=== PATIENT | female | born 1955 | race Native Hawaiian/Other Pacific Islander ===

== ENCOUNTER 2016-07-29 12:08 | Emergency (ER) | payer SELFPAY ==
[2016-07-29 15:26] VITALS: BP 120/60
--- NOTE | 2016-07-29 17:10 | Emergency Department Report ---
Chief Complaint: Fall Stated Complaint: FALL/LT HAND/SIDE PAIN Time Seen by Provider: 07/29/16 16:05 - HPI History of Present Illness: 60-year-old female presents today with headache, left shoulder, left leg and left breast pain post-fall that occurred 2 months ago. Denies head injury or loss of consciousness. Patient states that her pain is a 10 out of 10 and she would like some pain medication. Her activity pattern, Tylenol, ibuprofen with temporary relief. Denies numbness, weakness, paresthesias. Denies fever, chills, vomiting, chest pain, shortness of breath, abdominal pain, bowel or bladder incontinence, urinary symptoms. Positive for history of migraines. - ROS Review of Systems: Per HPI - Exam Vital Signs: Vital Signs 07/29/16 07/29/16 12:11 15:25 Temperature 98.0 F 98.5 F Pulse Rate 64 70 Respiratory 18 16 Rate Blood Pressure 118/66 Blood Pressure 120/60 [Right] O2 Sat by Pulse 96 100 Oximetry Physical Exam: GENERAL: The patient is well-developed and well-nourished. Patient is in NAD. HEAD: Normocephalic. Atraumatic. EYES: Extraocular motions are intact, PERRL. NOSE: Normal nasal mucosa with no nasal discharge. THROAT: No erythema, swelling or exudates. NECK: Supple, nontender, without lymphadenopathy. CHEST/LUNGS: Clear to auscultation throughout. HEART/CARDIOVASCULAR: Regular rate and rhythm. ABDOMEN: Abdomen is soft, nontender. No guarding or rebound tenderness. EXTREMITIES: Full ROM. Peripheral pulses intact. Capillary refill less than 2 seconds. NEURO: Alert and oriented x 3. Normal gait. CN II-XII intact. Symmetrical strength and sensation. Negative Romberg or pronator drift. Cerebellar testing normal. GCS score of 15. MSE screening note: Focused history and physical exam performed. Due to findings the following was ordered: ED Disposition for MSE Disposition: MEDICAL SCREENING EXAM-LEFT Condition: Stable Referrals: PRIMARY CARE, [Primary Care Provider] - 3-5 Days
== END 2016-07-29 16:41 | disposition left against medical advice (07) ==
LOC: ED 12:08
DX: R51 Headache (principal); M25.512 Pain in left shoulder; M79.605 Pain in left leg; Z53.21 Procedure and treatment not carried out due to patient leaving prior to being seen by health care provider; X58.XXXA Exposure to other specified factors, initial encounter; Y93.9 Activity, unspecified; Y92.9 Unspecified place or not applicable; Y99.9 Unspecified external cause status

== ENCOUNTER 2017-02-16 10:44 | Emergency (ER) | payer OTHER ==
[2017-02-16] MEDS ORDERED: NORCO 5/325 PO ONE (14:56)
--- NOTE | 2017-02-16 14:57 | Emergency Department Report ---
ED Fall HPI - General Chief Complaint: Fall Stated Complaint: HEAD/NECK/SHOULDER PAIN/FALL Time Seen by Provider: 02/16/17 14:41 Source: patient Mode of arrival: Ambulatory - History of Present Illness MD Complaint: fall - Related Data Previous Rx's Medication Instructions Recorded Last Taken Type traMADol [Ultram 50 MG tab] 50 mg PO Q6HR PRN #20 tablet 05/23/15 Unknown Rx Allergies Allergy/AdvReac Type Severity Reaction Status Date / Time Sulfa (Sulfonamide Allergy Unknown Verified 05/23/15 09:20 Antibiotics) ED Review of Systems ROS: Stated complaint: HEAD/NECK/SHOULDER PAIN/FALL Other details as noted in HPI ED Past Medical Hx - Past Medical History Hx Arthritis: Yes Hx Headaches / Migraines: Yes - Surgical History Additional Surgical History: NECK SURGERY - Social History Smoking Status: Former Smoker Substance Use Type: None - Medications Home Medications: Home Medications Medication Instructions Recorded Confirmed Last Taken Type traMADol [Ultram 50 MG tab] 50 mg PO Q6HR PRN #20 tablet 05/23/15 Unknown Rx ED Physical Exam - General Limitations: Physical Limitation ED Course Vital Signs 02/16/17 11:47 Temperature 98.2 F Pulse Rate 51 L Blood Pressure 141/77 O2 Sat by Pulse 97 Oximetry Critical care attestation.: If time is entered above; I have spent that time in minutes in the direct care of this critically ill patient, excluding procedure time. ED Disposition Condition: Stable Referrals: PRIMARY CARE, [Primary Care Provider] - 3-5 Days
--- NOTE | 2017-02-16 16:31 | Cat Scan Report ---
FINAL REPORT PROCEDURE: CT HEAD/BRAIN WO CON TECHNIQUE: Computerized tomography of the head was performed without contrast material. HISTORY: s/p fall w/ LOC COMPARISON: No prior studies are available for comparison. FINDINGS: Brain: Brain density appears normal. No evidence of intracranial hemorrhage. No parenchymal hemorrhage, mass lesions or mass effect are seen. No abnormal extraxial fluid collects or masses are seen. Ventricles: Ventricles are normal size and are midline. Bone Windows: No evidence of skull fracture. Paranasal sinuses: There is minimal nodular mucosal thickening medially in the right maxillary sinus. Paranasal sinuses otherwise are clear. Mastoid air cells: Clear IMPRESSION: Minimal paranasal sinus disease as described otherwise negative exam. No evidence of intracranial hemorrhage or skull fracture.
--- NOTE | 2017-02-16 16:37 | XRay Report ---
FINAL REPORT PROCEDURE: XR RIBS UNI W PA CHEST 3+V LT TECHNIQUE: RIGHT rib radiographs, 3 views of the ribs, including PA chest. HISTORY: s/p fall left sided rib pain COMPARISON: No prior studies are available for comparison. FINDINGS: No displaced rib fractures are seen. The lungs appear clear. Heart size and pulmonary vasculature appear normal. Postsurgical changes are seen partially visualized in the cervical spine from prior fusion procedure. There is mild to moderate thoracic scoliosis convex the right apex at T5. IMPRESSION: No displaced rib fractures are identified. Thoracic scoliosis. Postsurgical changes visualized cervical spine.
--- NOTE | 2017-02-16 16:49 | Cat Scan Report ---
FINAL REPORT PROCEDURE: CT LUMBAR SPINE WO CON TECHNIQUE: Computerized axial tomography of the lumbar spine was performed from T12 to the sacrum without contrast material. HISTORY: s/p fall c/o lower back pain COMPARISON: No prior studies are available for comparison. FINDINGS: No fracture is visualized. There is minimal retrolisthesis L3 in relation L4, 1.8 millimeters. This appears to be degenerative secondary to disc space narrowing and moderate facet arthritis bilaterally. I do not see evidence of spondylolysis. L1-2: Disc spaces well preserved. Mild facet arthritis present.. L2-3: The disc height is decreased. Minimal diffuse disc bulge present. No focal disc herniation or spinal stenosis visualized. Moderate facet arthritis is present bilaterally.. L3-4: The height of the disc is decreased. Anterior osteophytic spurring is present. There is a moderate diffuse posterior disc bulge present as well as moderate facet arthritis and mild ligamentum flavum laxity. Spinal canal is narrowed although probably still adequate. No focal disc herniation is visualized. L4-5: Mild diffuse disc bulge present without focal disc herniation or spinal stenosis. Mild to moderate facet arthritis is present. There is ligamentum flavum laxity. The spinal canal is narrowed although probably still adequate.. L5-S1: Mild diffuse disc bulge present without focal disc herniation or spinal stenosis. Mild facet arthritis present bilaterally.. Other: There is osteoarthritic change in the SI joints bilaterally. There is sclerosis and vacuum joint phenomena present.. IMPRESSION: No evidence of fracture. There is mild degenerative subluxation L3 in relation L4 as described. Diffuse degenerative disc disease is present. This is greatest at L3-4 and the L4-5 levels as described above. No focal disc herniation is identified. Spinal canal is narrowed at L3-4 and the L4-5 level secondary to degenerative changes although probably still adequate.
--- NOTE | 2017-02-16 17:13 | Cat Scan Report ---
FINAL REPORT PROCEDURE: CT CERVICAL SPINE WO CON TECHNIQUE: Computerized tomography of the cervical spine was performed from the skull base to T1 without contrast material. HISTORY: s/p fall c/o neck pain w/ loc COMPARISON: No prior studies are available for comparison. FINDINGS: No fracture is seen there is been prior fusion procedure performed at C4, C5, C6 and C7. Anterior fusion plate and multiple vertebral body fixation screws are present. Posterior elements are intact. There is approximately 2.2 millimeter anterior subluxation C7 in relation to T1. This may be degenerative. There is advanced facet arthritis bilaterally at the C7-T1 level and the disc space is narrowed as well as anterior osteophyte formation. There is posterior osteophytic spurring at the C6-C7 level obscuring the anterior epidural space. No focal disc herniations or spinal stenosis are identified. Degenerative spurring is also visualized at the C3-C4 level. No focal disc herniation or spinal stenosis is visualized. IMPRESSION: Prior fusion procedure as described above. No fracture is visualized. Mild anterior subluxation C7 in relation to T1 may be degenerative as described above. No focal disc herniation or spinal stenosis is seen..
--- NOTE | 2017-02-16 17:29 | Cat Scan Report ---
FINAL REPORT PROCEDURE: CT THORACIC SPINE WO CON TECHNIQUE: Computerized axial tomography of the thoracic spine was performed from C7 - L1 without contrast material. HISTORY: s/p fall w/ LOC, back pain COMPARISON: No prior studies are available for comparison. FINDINGS: Degenerative disc changes are present with disc space narrowing and marginal osteophyte formation. This is more prominent in the lower half of the thoracic spine. There is mild to moderate thoracic scoliosis convex the right apex T5. no fracture or subluxation is visualized. The posterior elements appear to be intact. Bone density appears normal. No spinal stenosis visualized. A portion of a cervical fusion procedure is partially visualized. This was better visualized on CT scan of the cervical spine also performed today. IMPRESSION: Degenerative disc disease is present diffusely throughout the thoracic spine greatest in the lower half of the thoracic spine with disc space narrowing a marginal osteophyte formation. No fracture or subluxation is visualized. There is mild to moderate thoracic scoliosis as described.
[2017-02-16 17:38] VITALS: BP 122/65
--- NOTE | 2017-02-18 11:11 | Emergency Department Report ---
Entered by VADIM FINK, acting as scribe for NIKOLAS RINCON PA. ED Fall HPI - General Chief Complaint: Fall Stated Complaint: HEAD/NECK/SHOULDER PAIN/FALL Time Seen by Provider: 02/16/17 14:44 Source: patient Mode of arrival: Ambulatory - History of Present Illness Initial Comments: 61 y/o female presents to the ED c/o headache status post fall this morning. Associated symptoms include left shoulder pain, neck pain and back pain but she denies LOC, vision changes, SOB, chest pain, abdominal pain, nausea and vomiting. Patient states she slipped on wet floor at the store this morning falling backwards. One home after the event and her daughters noticed that she was in significant pain so they urged her to come to the hospital for evaluation .No alleviating factors but worse with movement. Primarily complaining of pain in her back. Allergic to sulfa. Patient is accompanied by both of her daughters Complaint: fall -: This morning Fall From: standing When Fall Occurred: 4-[address] Fall Occurred: other (store) Loss of Consciousness: none Prolonged Down Time?: no Symptoms Prior to Fall: none Location: head Location - Extremities: Left: Shoulder Context: tripped/slipped Associated Symptoms: headache, neck pain, other (back pain, left shoulder pain, denies: LOC, vision changes, chest pain, SOB, abdominal pain, nausea and vomiting) - Related Data Previous Rx's Medication Instructions Recorded Last Taken Type traMADol [Ultram 50 MG tab] 50 mg PO Q6HR PRN #20 tablet 05/23/15 Unknown Rx Ibuprofen [Motrin] 800 mg PO Q8HR PRN #30 tablet 02/16/17 Unknown Rx Allergies Allergy/AdvReac Type Severity Reaction Status Date / Time Sulfa (Sulfonamide Allergy Unknown Verified 05/23/15 09:20 Antibiotics) ED Review of Systems Comment: All other systems reviewed and negative Eyes: denies: vision change Respiratory: denies: shortness of breath Cardiovascular: denies: chest pain Gastrointestinal: denies: abdominal pain, nausea, vomiting Musculoskeletal: back pain, other (neck pain, left shoulder pain) Neurological: headache. denies: other (LOC) ED Past Medical Hx - Past Medical History Hx Arthritis: Yes Hx Headaches / Migraines: Yes - Surgical History Additional Surgical History: NECK SURGERY - Social History Smoking Status: Former Smoker Substance Use Type: None - Medications Home Medications: Home Medications Medication Instructions Recorded Confirmed Last Taken Type traMADol [Ultram 50 MG tab] 50 mg PO Q6HR PRN #20 tablet 05/23/15 Unknown Rx Ibuprofen [Motrin] 800 mg PO Q8HR PRN #30 tablet 02/16/17 Unknown Rx ED Physical Exam - General Limitations: Physical Limitation General appearance: alert, in no apparent distress - Head Head exam: Present: atraumatic, normocephalic, normal inspection - Eye Eye exam: Present: normal appearance, PERRL, EOMI. Absent: scleral icterus, conjunctival injection, nystagmus, periorbital swelling, periorbital tenderness Pupils: Present: normal accommodation - ENT ENT exam: Present: normal exam, normal orophraynx, mucous membranes moist, TM's normal bilaterally, normal external ear exam - Neck Neck exam: Present: normal inspection, full ROM. Absent: tenderness, meningismus, lymphadenopathy, thyromegaly - Respiratory Respiratory exam: Present: normal lung sounds bilaterally. Absent: respiratory distress, wheezes, rales, rhonchi, stridor, chest wall tenderness, accessory muscle use, decreased breath sounds, prolonged expiratory - Cardiovascular Cardiovascular Exam: Present: regular rate, normal rhythm, normal heart sounds. Absent: bradycardia, tachycardia, irregular rhythm, systolic murmur, diastolic murmur, rubs, gallop - GI/Abdominal GI/Abdominal exam: Present: soft, normal bowel sounds. Absent: distended, tenderness, guarding, rebound, rigid, diminished bowel sounds - Extremities Exam Extremities exam: Present: normal inspection, full ROM, normal capillary refill. Absent: tenderness, pedal edema, joint swelling, calf tenderness - Back Exam Back exam: Present: normal inspection, full ROM. Absent: tenderness, CVA tenderness (R), CVA tenderness (L), muscle spasm, paraspinal tenderness, vertebral tenderness, rash noted - Neurological Exam Neurological exam: Present: alert, oriented X3, CN II-XII intact, normal gait, reflexes normal - Psychiatric Psychiatric exam: Present: normal affect, normal mood - Skin Skin exam: Present: warm, dry, intact, normal color. Absent: rash ED Course Vital Signs 02/16/17 02/16/17 11:47 17:37 Temperature 98.2 F Pulse Rate 51 L 51 L Respiratory 20 Rate Blood Pressure 141/77 Blood Pressure 122/65 [Right] O2 Sat by Pulse 97 98 Oximetry ED Medical Decision Making - Medical Decision Making A/P: Mechanical fall, concussion 1-CT head and C-spine thoracic spine L spine show chronic degenerative changes but no acute fractures, patient is ambulatory strength 5 out of 5 all extremities neurological deficits on exam, patient 2-x-ray chest unremarkable 3-Motrin when necessary 4- I gave patient and family members (her adult daughters) precautions on concussions and advised them to return to the ED if patient experiences lethargy confusion worsened headache. I advised patient to not drive for several days and to follow up with primary care. ED Disposition Clinical Impression: Concussion Qualifiers: Encounter type: initial encounter Loss of consciousness presence/duration: with LOC of 30 min or less Qualified Code(s): S06.0X1A - Concussion with loss of consciousness of 30 minutes or less, initial encounter Fall Qualifiers: Encounter type: initial encounter Qualified Code(s): W19.XXXA - Unspecified fall, initial encounter Disposition: TO HOME OR SELFCARE Is pt being admited?: No Does the pt Need Aspirin: No Condition: Stable Instructions: Concussion (ED), Minor Head Injury (ED), Post Concussion Syndrome (ED) Prescriptions: Ibuprofen [Motrin] 800 mg PO Q8HR PRN #30 tablet PRN Reason: Headache Referrals: RINA KERN MD [Staff Physician] - 3-5 Days Forms: Accompanied Note, Work/School Release Form(ED) Time of Disposition: 11:11 This documentation as recorded by the ALEKS gautam ELIZABETH,accurately reflects the service I personally performed and the decisions made by ,NIKOLAS RINCON PA.
== END 2017-02-16 17:52 | disposition home or self-care (01) ==
LOC: ED 10:44
DX: S06.0X0A Concussion without loss of consciousness, initial encounter (principal); M54.2 Cervicalgia; M25.512 Pain in left shoulder; M19.90 Unspecified osteoarthritis, unspecified site; G43.909 Migraine, unspecified, not intractable, without status migrainosus; Z87.891 Personal history of nicotine dependence; Z88.2 Allergy status to sulfonamides; W01.0XXA Fall on same level from slipping, tripping and stumbling without subsequent striking against object, initial encounter; Y93.89 Activity, other specified; Y92.89 Other specified places as the place of occurrence of the external cause; Y99.8 Other external cause status
CPT/HCPCS: 70450; 72125; 72128; 72131; 99284